=== PATIENT | male | born 1980 | race Caucasian/White ===

== ENCOUNTER 2018-11-01 11:46 | Emergency (ER) | payer SELFPAY ==
[2018-11-01] MEDS: KETOROLAC 30 MG INJ IM (14:29)
[2018-11-01] MEDS: HYDROCODONE/APAP (5/325) TAB PO (14:29)
== END 2018-11-01 15:17 | disposition home or self-care (01) ==
LOC: FTE 11:46
DX: M25.561 Pain in right knee (principal)
CPT/HCPCS: 73562; 96372; 99284-25